=== PATIENT | female | born 1965 | race Caucasian/White ===

== ENCOUNTER 2019-05-03 07:47 | Emergency (ER) | payer OTHER ==
--- NOTE | 2019-05-03 07:54 | PDOC ---
History of Present Illness - General Chief Complaint: Injury Stated Complaint: RIGHT ANKLE PAIN/INJURY Time Seen by Provider: 05/03/19 07:53 History Source: Patient Exam Limitations: No Limitations - History of Present Illness Initial Comments: 05/03/19 07:54 Ms. Segovia is a 54 yo F with no significant past medical history who presents ambulatory to the ER with a complaint of right ankle pain Pt reports that yesterday at approximately 8:30pm, she took out the recycling in the dark, stepped on a stone at the end of her driveway and fell to the right side, rolling her right ankle in the process. Pt denies head trauma, LOC , amnesia. She was assisted to standing and got back in her home She noted severe ankle pain, rating it 8/10, worse with walking or movement of her foot. She was in pain when she went to bed and took Advil at 1am which improved her pain and she was able to go to sleep This morning she noted continued pain (now 3/10) and wanted to have her ankle assessed No neck pain No preceding chest pain, shortness of breath, palpitations Able to bear weight but this causes pain No Bruising noted PMH: denies PSH: Right knee arthroscopy Meds: Zyrtec daily ALL: PCN --> unknown ROS: GENERAL/CONSTITUTIONAL: No: weakness HEAD, EYES, EARS, NOSE AND THROAT: No: eye injury/pain, no facial pain or trauma CARDIOVASCULAR: No: chest pain, lightheadedness RESPIRATORY: No: cough, shortness of breath GASTROINTESTINAL: No: nausea, vomiting, abdominal pain GENITOURINARY: No: flank pain. MUSCULOSKELETAL: No: back pain, neck pain, muscle swelling or pain SKIN: No: bruising, lacerations. NEUROLOGIC: No: headache, vertigo MY ANKLE PAIN PHYSICAL EXAM General: Appears well, non-toxic. Head: no signs of trauma Eyes: EOMI, PERRLA Throat: No apparent airway compromise Neck: is symmetrical, supple. Trachea is midline. FROM Card: RRR, nml S1, S2 Pulm: CTA B/L Abs: no abd tenderness Musculoskeletal: No deformities, swelling, ecchymosis of the lower extremities bilaterally. Inferior to the right lateral malleolus there is tenderness to palpation No tenderness to palpation of the DIPs, PIPs, MTPs, phalanges, metatarsals, tarsals, lateral or medial malleolus, Achilles, tibia, fibula, knee, hip bilaterally. Full range of motion of the hips, knees. Pain with movement of the right ankle Patient able to bear weight. Ambulating with a limp and using crutches. Dorsalis pedis and posterior tibialis pulses 2+ and equal bilaterally. Capillary refill less than 2 seconds bilaterally. Neurologic: The patient is awake, alert, oriented x3. Gross motor and sensory exam is found to be intact. Sensation of distal lower extremities intact. 5/5 muscle strength of the lower extremities. Skin: Warm and dry. No lesions or rashes of exposed skin appreciated. Past History - Past Medical History Allergies/Adverse Reactions: Allergies Allergy/AdvReac Type Severity Reaction Status Date / Time wheat Allergy Intermediate Nausea Verified 05/03/19 08:05 Penicillins Allergy Unknown childhood Verified 05/03/19 08:05 allergy cinnamon AdvReac Intermediate Nausea Verified 05/03/19 08:05 potato AdvReac Intermediate Nausea Verified 05/03/19 08:05 soy AdvReac Intermediate Nausea Verified 05/03/19 08:05 POE AdvReac Intermediate Nausea Uncoded 03/04/16 11:02 ONIONS AdvReac Intermediate Nausea Uncoded 03/04/16 11:02 RYE AdvReac Intermediate Nausea Uncoded 03/04/16 11:01 Home Medications: Ambulatory Orders Cetirizine HCl [Zyrtec -] 10 mg PO DAILY 02/09/14 Anemia: Yes (POST CHILDBIRTH ONLY) Asthma: No Cancer: No Cardiac Disorders: Yes (HEART MURMUR) CVA: No COPD: No CHF: No Dementia: No Diabetes: No GI Disorders: No Disorders: No HTN: No Hypercholesterolemia: No Liver Disease: No Seizures: No Thyroid Disease: No - Surgical History Abdominal Surgery: No Appendectomy: No Cardiac Surgery: No Cholecystectomy: No Lung Surgery: No Neurologic Surgery: No Orthopedic Surgery: Yes (KNEE ARTHROSCOPIC) - Suicide/Smoking/Psychosocial Hx Smoking History: Never smoked Hx Alcohol Use: Yes (1 GLASS OF WINE DAILY) Drug/Substance Use Hx: Yes Substance Use Type: Alcohol Hx Substance Use Treatment: No Medical Decision Making - Medical Decision Making 05/03/19 08:13 Ms. Segovia presents with a complaint of right ankle pain Vitals: WNL Clinical impression: Most likely ankle sprain as x-ray demonstrated no sign of fracture. Patient placed in air case and given NSAIDS for pain, pt already has crutches, told to rest it for at least 1 week or until feeling better. RICE Pt directed to follow up with PCP/Referral within 24-48 hours and to go to ED if they develop any new worsening symptoms. Pt expressed understanding and agreement with above stated plan. *DC/Admit/Observation/Transfer Diagnosis at time of Disposition: Ankle sprain Qualifiers: Encounter type: initial encounter Involved ligament of ankle: unspecified ligament Laterality: right Qualified Code(s): S93.401A - Sprain of unspecified ligament of right ankle, initial encounter - Discharge Dispostion Disposition: HOME Condition at time of disposition: Stable Decision to Admit order: No - Referrals - Patient Instructions Printed Discharge Instructions: DI for Ankle Sprain Additional Instructions: Ms. Segovia Today you were seen for ankle pain and the X-ray demonstrated no signs of fracture (broken bone), for that reason it is more likely a sprain based on your symptoms and the appearance and exam findings of your ankle. Please be sure to rest, ice and elevate it and to avoid bearing weight until feeling better. You may take the medications weve provided you as directed but please be sure to read the instructions provided by the pharmacist to make sure you take the medications correctly. You should not participate in any sports for at least 1 week or until you are feeling better. Follow up with your primary cares office, or mission support specialist as needed If you develop any new or worsening symptoms, or any fevers that cant be controlled with Tylenol or Motrin go directly to the emergency room. - Post Discharge Activity
[2019-05-03 08:00] VITALS: TEMP 98.6; BMI 29.0
[2019-05-03] MEDS ORDERED: IBUPROFEN 600 MG TABLET (FP) PO ONE ×2 (08:00→08:10)
[2019-05-03 09:19] VITALS: BP 152/82; PULSE 78
== END 2019-05-03 08:48 | disposition home or self-care (01) ==
LOC: FER 07:47
PROC: 2W3QX1Z Immobilization of Right Lower Leg using Splint (ICD-10-PCS; principal; 2019-05-03)
DX: S93.401A Sprain of unspecified ligament of right ankle, initial encounter (principal); X58.XXXA Exposure to other specified factors, initial encounter; Y93.89 Activity, other specified; Y92.89 Other specified places as the place of occurrence of the external cause; R01.1 Cardiac murmur, unspecified
CPT/HCPCS: 73610-TC-RT-FY; 73630-TC-RT-FY; 99282-25